=== PATIENT | male | born 1980 | race Caucasian/White ===

== ENCOUNTER 2020-12-05 10:10 | Emergency (ER) | payer OTHER ==
[~2020-12-05 10:10] MED LIST: IBUPROFEN800 MG PO
[2020-12-05 10:30] LABS: BASOPHIL 0.5 % (0-2); EOSINOPHIL 2.5 % (0-5); HCT 47.4 % (42.0-52.0); LYMPHOCYTE 24.2 % (15-48); MCH 33.5 pg (25.0-31.0); MCHC 33.8 g/dL (32.0-36.0); MCV 99.2 fL (78.0-100.0); MONOCYTE 8.7 % (0-12); MPV 10.6 fL (6.0-9.5); NEUTROPHIL 63.8 % (41-80); NRBC 0; PLT 204 K/uL (150-400); RBC 4.78 M/uL (4.70-6.00); RDW 11.9 % (11.5-14.0); WBC 9.3 K/uL (4.0-10.5)
[2020-12-05 11:40] LABS: CREATININE 0.95 mg/dL (0.67-1.17)
[2020-12-05 11:41] LABS: ALBUMIN 4.1 g/dL (3.4-5.0); BILIRUBIN - TOTAL 0.8 mg/dL (0.2-1.0); TOTAL PROTEIN 7.1 g/dL (6.4-8.2)
== END 2020-12-05 12:21 | disposition home or self-care (01) ==
LOC: FER 10:10
PROVIDERS: Emergency Medicine
DX: R07.89 Other chest pain (principal); R06.02 Shortness of breath; R00.2 Palpitations; F17.210 Nicotine dependence, cigarettes, uncomplicated; Z90.49 Acquired absence of other specified parts of digestive tract
CPT/HCPCS: 36415; 71045; 80053; 84484; 85025; 93005

== ENCOUNTER 2021-07-01 18:35 | Emergency (ER) | payer OTHER ==
[2021-07-01 21:28] LABS: CORONAVIRUS 2019 SARS-COV-2 POSITIVE (NEGATIVE); INFLUENZA A NAA NEGATIVE (NEGATIVE)
== END 2021-07-01 22:05 | disposition home or self-care (01) ==
LOC: FER 18:35
PROVIDERS: Nurse Practitioner Family
DX: U07.1 COVID-19 (principal)
CPT/HCPCS: 99283; U0002